=== PATIENT | female | born 1990 | race Caucasian/White ===

== ENCOUNTER 2019-06-13 12:01 | Emergency (ER) | payer OTHER ==
[~2019-06-13] VITALS: Ht 157.5 cm; Wt 80.3 kg
[2019-06-13] MEDS ORDERED: Amoxicillin500 MG PO (13:19)
== END 2019-06-13 13:31 | disposition home or self-care (01) ==
LOC: ER 12:01
DX: K02.9 Dental caries, unspecified (principal); F17.200 Nicotine dependence, unspecified, uncomplicated
CPT/HCPCS: 99282

== ENCOUNTER → 2019-08-05 | Outpatient (CLI) | payer OTHER ==
[~2019-08-05] MED LIST: Amoxicillin500 MG PO
[2019-08-06 10:22] LABS: Candida species (DNA Probe) Negative (NEGATIVE); G. vaginalis (DNA Probe) Positive (NEGATIVE); T. vaginalis (DNA Probe) Negative (NEGATIVE)
[2019-08-10 01:06] LABS: CHLAMYDIA TRACHOMATIS, NAA Negative (Negative); HPV 16 Negative (Negative); HPV 18 Negative (Negative); HPV OTHER HR TYPES Negative (Negative); NEISSERIA GONORRHOEAE, NAA Negative (Negative)
== END | disposition home or self-care (01) ==
LOC: LAB SHORT 12:32 → LAB 12:32
PROVIDERS: Family Medicine
DX: Z01.419 Encounter for gynecological examination (general) (routine) without abnormal findings (principal)
CPT/HCPCS: 87480; 87491; 87510; 87591; 87624; 87660; G0123

== ENCOUNTER 2022-07-28 16:35 | Observation (INO) | payer OTHER ==
[~2022-07-28] VITALS: Ht 157.5 cm; Wt 80.3 kg
[2022-07-28 17:31] LABS: BASOPHILS ABSOLUTE AUTO 0.07 K/mm3 (0.00-0.23); BASOPHILS PERCENT AUTO 0 % (0-2); EOSINOPHILS ABSOLUTE AUTO 0.07 K/mm3 (0.00-0.68); EOSINOPHILS PERCENT AUTO 0 % (0-6); Hematocrit 38.7 % (33.0-51.0); Hemoglobin 13.2 g/dL (11.5-16.0); IMMATURE GRAN ABSOLUTE AUTO 0.08 K/mm3 (0.00-0.10); IMMATURE GRAN PERCENT AUTO 1 % (0-1); LYMPHOCYTES ABSOLUTE AUTO 2.57 K/mm3 (0.84-5.20); LYMPHOCYTES PERCENT AUTO 15 % (21-46); MONOCYTES ABSOLUTE AUTO 0.68 K/mm3 (0.16-1.47); MONOCYTES PERCENT AUTO 4 % (4-13); Mean Corpuscular HGB 31.1 pg (26.0-34.0); Mean Corpuscular HGB Conc 34.1 g/dL (31.5-36.5); Mean Corpuscular Volume 91 fL (80-100); Mean Platelet Volume 9.2 fL (9.1-12.4); NEUTROPHILS ABSOLUTE AUTO 13.94 K/mm3 (1.96-9.15); NEUTROPHILS PERCENT AUTO 80 % (41-73); Platelet Count 445 K/mm3 (150-400); RDW Coefficient Variation 12.1 % (11.7-14.2); RDW Standard Deviation 40.7 fL (35.1-46.3); Red Blood Cell Count 4.24 M/mm3 (3.80-5.20); White Blood Cell Count 17.41 K/mm3 (4.00-11.30)
[2022-07-28 17:53] LABS: Albumin, Blood 3.9 g/dL (3.4-5.0); Albumin/Globulin Ratio 1.1 (0.8-1.8); Bilirubin, Total 0.1 mg/dL (0.1-1.0); Bun/Creatinine Ratio 9.2 (12.0-20.0); Calcium, Blood 8.5 mg/dL (8.5-10.1); Creatinine, Blood 0.76 mg/dL (0.40-1.00); Globulin, Blood 3.4 g/dL (2.2-4.0); Potassium, Blood 3.8 mmol/L (3.5-5.5); Total Protein, Blood 7.3 g/dL (6.4-8.2)
--- NOTE | 2022-07-29 04:20 | NUR ---
SHIFT SUMMARY PT A&OX4 AND COOPERATIVE WITH CARE. PAIN MANAGED PER EMAR. CHEST TUBE TO SUCTION AND SECURED TO FLOOR, CHEST TUBE DRESSING C/D/I. USING BSC TO VOID WITH ASSISTANCE TO MANAGE LINES. TOLERATING PO INTAKE. CALLS APPROPRIATELY, CALL LIGHT WITHIN REACH.
[2022-07-29 06:03] LABS: BASOPHILS ABSOLUTE AUTO 0.05 K/mm3 (0.00-0.23); BASOPHILS PERCENT AUTO 0 % (0-2); EOSINOPHILS ABSOLUTE AUTO 0.04 K/mm3 (0.00-0.68); EOSINOPHILS PERCENT AUTO 0 % (0-6); Hematocrit 37.6 % (33.0-51.0); Hemoglobin 12.7 g/dL (11.5-16.0); IMMATURE GRAN PERCENT AUTO 1 % (0-1); LYMPHOCYTES ABSOLUTE AUTO 2.64 K/mm3 (0.84-5.20); LYMPHOCYTES PERCENT AUTO 12 % (21-46); MONOCYTES PERCENT AUTO 6 % (4-13); Mean Corpuscular HGB 31.2 pg (26.0-34.0); Mean Corpuscular HGB Conc 33.8 g/dL (31.5-36.5); Mean Corpuscular Volume 92 fL (80-100); Mean Platelet Volume 9.8 fL (9.1-12.4); NEUTROPHILS ABSOLUTE AUTO 17.37 K/mm3 (1.96-9.15); NEUTROPHILS PERCENT AUTO 81 % (41-73); Platelet Count 444 K/mm3 (150-400); RDW Coefficient Variation 12.1 % (11.7-14.2); RDW Standard Deviation 41.2 fL (35.1-46.3); Red Blood Cell Count 4.07 M/mm3 (3.80-5.20)
[2022-07-29 06:14] LABS: Bun/Creatinine Ratio 11.9 (12.0-20.0); Calcium, Blood 8.5 mg/dL (8.5-10.1); Creatinine, Blood 0.75 mg/dL (0.40-1.00); Potassium, Blood 4.2 mmol/L (3.5-5.5)
--- NOTE | 2022-07-29 17:22 | NUR ---
CHANGE IN BREATHING PT CALLS & REPORTS FEELING SLIGHTLY SOB & LIKE HER BREATHING HAS CHANGED. LUNG SOUNDS: L CLEAR. R RUB SOUND T/O & NO CREPITIS FELT. PT REPORTS FEELING LIKE "SMALL BUBBLING IN HER LUNGS" WHEN BREATHING IN. CHEST TUBE UNCLAMPED. REASSESSED AT 1740: R SIDE CLEAR w/ SMALL RUB AT BASE. O2 SATS HAVE REMAINED > 98% T/O THIS.
--- NOTE | 2022-07-29 18:11 | NUR ---
SHIFT SUMMARY PT HAS DONE WELL TODAY w/ EXCEPTION OF NEEDING CT UNCLAMPED AFTER BEING CLAMPED & SUCTION TURNED OFF AROUND [address] SIMMS CONSULTED. SHE HAS BEEN SPEAKIGN IN FULL SENTENCES & DENIES ANY SOB ONCE CT UNCLAMPED (NO SX). EATING, DRINKING, VOIDING.
--- NOTE | 2022-07-30 05:09 | NUR ---
POD1 FOR A RIGHT CHEST TUBE PLACEMENT. PT HAS REMAINED WATERSEALED T/O THE NIGHT WITH NO SUCTION. DRESSING IS C/D/I. O2 SATURATIONS HAVE REMAINED >95% ON RA. T/O THE NIGHT THE PT HAS STATED THAT SHE FEELS IF HER BREATHING KEEPS IMPROVING AND THAT HER PAIN IS RELATED TO THE C/T PLACEMENT. NOTED THAT LUNG SOUNDS HAVE IMPROVED AND NOW SOUND CLEAR IN ALL LOBES. MEDICATED FOR PAIN WITH NORCO AND FENTYNAL. MEDICATED FOR NAUSEA ONCE, RELATED TO IV NARCS. THE PATIENT VOIDED INDEPENDENTLY INTO THE BSC T/O THE NIGHT, TOLLERATED PO INTAKE WELL. PT SLEPT ON AND OFF. REPORTS FEELING WELL RESTED. PLAN FOR PT TO HAVE A CHEST XRAY THIS AM AND TRIAL HAVING THE TUBE CLAMPED T/O THE DAY. THE PATIENT IS CURRENTLY RESTING IN BED, IN NO DISTRESS. CALL LIGHT IN REACH.
[2022-07-30 05:20] LABS: Hematocrit 38.3 % (33.0-51.0); Mean Corpuscular HGB 31.3 pg (26.0-34.0); Mean Corpuscular HGB Conc 33.9 g/dL (31.5-36.5); Mean Corpuscular Volume 92 fL (80-100); Mean Platelet Volume 10.5 fL (9.1-12.4); Platelet Count 150 K/mm3 (150-400); RDW Coefficient Variation 12.4 % (11.7-14.2); RDW Standard Deviation 42.4 fL (35.1-46.3); Red Blood Cell Count 4.15 M/mm3 (3.80-5.20); White Blood Cell Count 9.96 K/mm3 (4.00-11.30)
--- NOTE | 2022-07-30 09:33 | NUR ---
CHEST TUBE CLAMPED BY DR JARQUIN
--- NOTE | 2022-07-30 13:30 | NUR ---
CT REMOAVED BY DR JARQUIN; PT TOLERATED WELL.
--- NOTE | 2022-07-30 14:46 | NUR ---
DISCHARGE PT HAS DONE WELL SINCE CT DC'd. EXCITED FOR DC. O2 SATS > 95% ON RA DURING M Y SHIFT, EVEN WHEN ASLEEP. PAIN WELL MANAGED. NORCO SCRIPT SENT. DECLINED WC; AMBULATED OUT w/ SPOUSE.
== END 2022-07-30 14:48 | disposition home or self-care (01) ==
LOC: ER 16:35 → SURS 07-29 00:49
PROVIDERS: Family Medicine; Internal Medicine; Physician Assistant; ADMIT Internal Medicine
DX: J93.11 Primary spontaneous pneumothorax (principal); J45.20 Mild intermittent asthma, uncomplicated; D72.829 Elevated white blood cell count, unspecified; Z87.891 Personal history of nicotine dependence
CPT/HCPCS: 32551; 36415; 71045; 80048; 80053; 82947; 83690; 84484; 85025; 85027; 93005; 93010; 94762; 96374-59; 96375-59; 96376; 99285-25; A9270; G0378; J0690; J1170; J1650; J2405; J2765; J3010

== ENCOUNTER → 2025-06-16 | Outpatient (CLI) | payer BC | LOC: LAB 11:20 → LAB SHORT 11:20 | DX: R30.0 Dysuria (principal) | CPT/HCPCS: 87077; 87086; 87186 ==